=== PATIENT | female | born 1995 | race Caucasian/White ===

== ENCOUNTER 2017-12-26 18:06 | Emergency (ER) | payer MEDICAID ==
[2017-12-26 18:11] VITALS: BP 126/84; PULSE 92; RESP 18; TEMP 98.1
--- NOTE | 2017-12-26 18:50 | XR ---
EXAMINATION TYPE: XR foot complete LT DATE OF EXAM: 12/26/2017 COMPARISON: NONE HISTORY: Foot pain TECHNIQUE: 3 views FINDINGS: Metatarsals are intact. I see no fracture nor dislocation. There are no erosions. Joint spa fernanda are normal. IMPRESSION: Negative left foot exam.
--- NOTE | 2017-12-26 18:59 | ED ---
General Adult HPI - General Chief complaint: Extremity Injury, Lower Stated complaint: Foot Pain Time Seen by Provider: 12/26/17 18:14 Source: patient Mode of arrival: ambulatory Limitations: no limitations - History of Present Illness Initial comments: 22-year-old female patient presents to the emergency department today for evaluation of left foot pain. Patient states that Tuesday she was taking a walk when she developed pain to the dorsal aspect of her foot along the first metatarsal. Patient denies any injury to the foot. Denies any numbness or tingling. Denies any history of similar symptoms. Denies any pain to the plantar surface of the foot. Denies any redness or swelling. Denies any new footwear. Patient denies any headache, neck pain, back pain, chest pain, shortness of breath, dizziness, weakness, abdominal pain, nausea, vomiting, or difficulties with bowel movements or urination. - Related Data Home Medications Medication Instructions Recorded Confirmed Ibuprofen [Motrin Ib] 400 mg PO Q6HR PRN 12/26/17 12/26/17 Previous Rx's Medication Instructions Recorded Ibuprofen [Motrin] 600 mg PO Q8HR PRN #30 tab 12/26/17 Allergies Allergy/AdvReac Type Severity Reaction Status Date / Time codeine AdvReac Vomiting Verified 12/26/17 18:29 Review of Systems ROS Statement: Those systems with pertinent positive or pertinent negative responses have been documented in the HPI. ROS Other: All systems not noted in ROS Statement are negative. Past Medical History Past Medical History: No Reported History History of Any Multi-Drug Resistant Organisms: None Reported Past Surgical History: No Surgical Hx Reported Past Psychological History: No Psychological Hx Reported Smoking Status: Current every day smoker Past Alcohol Use History: Rare Past Drug Use History: None Reported General Exam Limitations: no limitations General appearance: alert, in no apparent distress, other (This is a well- developed, well-nourished adult female patient in no acute distress. Vital signs upon presentation are temperature 98.1F, pulse 92, respirations 18, blood pressure 126/84, pulse ox 99% on room air.) Eye exam: Present: normal appearance, PERRL, EOMI. Absent: scleral icterus, conjunctival injection, periorbital swelling ENT exam: Present: normal exam, normal oropharynx, mucous membranes moist Respiratory exam: Present: normal lung sounds bilaterally. Absent: respiratory distress, wheezes, rales, rhonchi, stridor Cardiovascular Exam: Present: regular rate, normal rhythm, normal heart sounds. Absent: systolic murmur, diastolic murmur, rubs, gallop, clicks Extremities exam: Present: full ROM, normal capillary refill, other (Full passive range of motion of the left great toe without pain. No redness, swelling , or warmth to the MTP joint. Pedal and posttibial pulses are 2+ and equal bilaterally. No joint tenderness.). Absent: normal inspection, tenderness, pedal edema, joint swelling, calf tenderness Neurological exam: Present: alert, oriented X3, CN II-XII intact Psychiatric exam: Present: normal affect, normal mood Skin exam: Present: warm, dry, intact, normal color. Absent: rash Course Vital Signs 12/26/17 18:08 Temperature 98.1 F Pulse Rate 92 Respiratory 18 Rate Blood Pressure 126/84 O2 Sat by Pulse 99 Oximetry Medical Decision Making - Medical Decision Making 22-year-old female patient presented to the emergency department today for evaluation of dorsal foot pain over the first metatarsal. Physical examination is unremarkable. There is no pain with passive range of motion. No pain with active range of motion. Pedal pulses are intact. No evidence of infection. X- rays negative for any acute fractures or dislocations. It is felt patient may have tendinitis. She'll be treated with ibuprofen and rest. She is instructed to follow-up with orthopedics if her symptoms aren't improved over the next week. Return parameters discussed in detail. She verbalizes understanding and agrees with this plan. - Radiology Data Radiology results: report reviewed, image reviewed 3 views of the left foot are obtained. Metatarsals are intact. There is no fracture nor dislocation. There are no erosions. Joint spaces are normal. Impression by Dr. Jamison shows negative left foot exam. Disposition Clinical Impression: Tendinitis of left foot Disposition: HOME SELF-CARE Condition: Good Instructions: Tendinitis (ED) Additional Instructions: Rest foot and use ibuprofen as directed. Follow-up with primary care physician for recheck in 1-2 days. If symptoms persist despite pain control methods follow-up with orthopedics for further evaluation. Return here immediately for any new, worsening, or concerning symptoms. Prescriptions: Ibuprofen [Motrin] 600 mg PO Q8HR PRN #30 tab PRN Reason: Pain Is patient prescribed a controlled substance at d/c from ED?: No Referrals: Desmond Hobbs DO [Primary Care Provider] - 1-2 days Bola Mayorga DO [Doctor of Osteopathic Medicine] - 1-2 days Time of Disposition: 19:19
== END 2017-12-26 19:56 | disposition home or self-care (01) ==
LOC: EC 18:06
DX: M77.52 Other enthesopathy of left foot and ankle (principal); F17.200 Nicotine dependence, unspecified, uncomplicated; Z88.5 Allergy status to narcotic agent
CPT/HCPCS: 99283

== ENCOUNTER → 2018-08-09 | Outpatient (CLI) | payer MEDICAID | LOC: LABWHC1 16:32 | PROVIDERS: ATTEND Obstetrics & Gynecology | DX: N91.2 Amenorrhea, unspecified (principal) | CPT/HCPCS: 36415; 84702 ==

== ENCOUNTER 2019-01-31 21:59 | Emergency (ER) | payer OTHER, MEDICAID ==
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
--- NOTE | 2019-02-01 00:13 | XR ---
EXAM: XR Chest, 2 Views CLINICAL HISTORY: ITS.REASON XR Reason: Pain TECHNIQUE: Frontal and lateral views of the chest. COMPARISON: None FINDINGS: Hardware: None. Lungs/pleura: Normal. No focal consolidation. No pleural effusion or pneumothorax. Heart/mediastinum: Normal. No cardiomegaly. Soft tissues: Bilateral nipple piercings. Bones: No acute fracture. Upper abdomen: Normal. IMPRESSION: No acute disease identified.
[2019-02-01 00:35] VITALS: BP 102/70; PULSE 65; RESP 12; TEMP 98
== END 2019-02-01 00:33 | disposition home or self-care (01) ==
LOC: EC 21:59
DX: S39.012A Strain of muscle, fascia and tendon of lower back, initial encounter (principal); F17.200 Nicotine dependence, unspecified, uncomplicated; Z88.5 Allergy status to narcotic agent; V89.2XXA Person injured in unspecified motor-vehicle accident, traffic, initial encounter; Y92.410 Unspecified street and highway as the place of occurrence of the external cause
CPT/HCPCS: 71046; 99284

== ENCOUNTER 2019-08-17 05:19 | Emergency (ER) | payer MEDICAID, OTHER ==
[2019-08-17] MEDS ORDERED: SODIUM CHLORIDE 0.9% 1,000 ML IV STA (05:42)
[2019-08-17] MEDS ORDERED: ONDANSETRON 4 MG/2 ML VIAL IVP STA (05:42)
--- NOTE | 2019-08-17 05:43 | ED ---
Nausea/Vomiting/Diarrhea HPI - General Chief complaint: Nausea/Vomiting/Diarrhea Stated complaint: Vomiting, diarrhea Time Seen by Provider: 08/17/19 05:42 Source: patient Mode of arrival: ambulatory Limitations: no limitations - History of Present Illness Initial comments: Tabatha is recently healthy 23-year-old female presents ER today for evaluation of nausea vomiting diarrhea. Patient reports that symptoms began approximately 12 hours ago, she reports that she's been vomiting approximately every 30 minutes and is unable to hold down any oral intake. She reports her father was sick last week for similar symptoms. She denies any suspicious food intake but does state she initially thought this might be something she ate. She reports crampy mid abdominal pain. - Related Data Home Medications Medication Instructions Recorded Confirmed No Known Home Medications 01/31/19 01/31/19 Allergies Allergy/AdvReac Type Severity Reaction Status Date / Time codeine AdvReac Vomiting Verified 08/17/19 05:29 Review of Systems ROS Statement: Those systems with pertinent positive or pertinent negative responses have been documented in the HPI. ROS Other: All systems not noted in ROS Statement are negative. Past Medical History Past Medical History: No Reported History History of Any Multi-Drug Resistant Organisms: None Reported Past Surgical History: No Surgical Hx Reported Past Psychological History: No Psychological Hx Reported Smoking Status: Current every day smoker Past Alcohol Use History: Rare Past Drug Use History: None Reported General Exam - General Exam Comments Initial Comments: Physical Exam GENERAL: Patient is well-developed and well-nourished. Patient is nontoxic and well- hydrated and is in no distress. HENT: Normocephalic, Atraumatic. EYES: PERRL, EOMI PULMONARY: Unlabored respirations. No audible rales rhonchi or wheezing was noted. CARDIOVASCULAR: There is a regular rate and rhythm without any murmurs gallops or rubs. ABDOMEN: Soft with normal bowel sounds. Minimal tenderness to palpation the epigastrium No peritoneal signs SKIN: Skin is clear with no lesions or rashes and otherwise unremarkable. : Deferred NEUROLOGIC: Patient is alert and oriented x3. Moving all extremities spontaneously MUSCULOSKELETAL: Normal extremities with adequate strength and full range of motion. No lower extremity swelling or edema. No calf tenderness. PSYCHIATRIC: Normal psychiatric evaluation. Limitations: no limitations Course Vital Signs 08/17/19 08/17/19 08/17/19 05:28 06:33 07:18 Temperature 99.6 F 101 F H 100.7 F H Pulse Rate 129 H 122 H 120 H Respiratory 20 16 18 Rate Blood Pressure 106/70 122/77 115/73 O2 Sat by Pulse 97 100 100 Oximetry 08/17/19 08:34 Temperature 100.5 F H Pulse Rate 104 H Respiratory 18 Rate Blood Pressure 114/63 O2 Sat by Pulse 100 Oximetry Medical Decision Making - Medical Decision Making Patient was seen and evaluated history and physical exam concerning for dehydration patient with nausea vomiting diarrhea for 12 hours noted be normotensive but tachycardic afebrile upon arrival Labs and IV fluids were ordered Zofran ordered for antiemetic Patient was reevaluated after antiemetics and 1 L of fluids, feeling much better tolerating by mouth intake however now has a fever. Antipyretics were ordered as well as an additional 1 L of fluids. Labs resulted with mild leukocytosis likely reactive, mild transaminitis again likely reactive due to vomiting, She was reevaluated after additional antipyretics and IV fluids, heart rate is improving, fever is improving she is feeling better she's tolerated a glass of ice water. Abdomen is soft with only minimal epigastric tenderness to deep palpation likely secondary to multiple episodes of vomiting. No peritoneal signs. At this time patient is comfortable with plan for discharge home. Importance of supportive care, oral fluid intake, hydration were discussed. Return parameters including any worsening abdominal pain, intractable nausea and vomiting, signs of dehydration or any new or concerning symptoms were discussed. Patient was discharged home in stable condition. - Lab Data Result diagrams: 08/17/19 06:00 08/17/19 06:00 Lab Results 08/17/19 08/17/19 08/17/19 Range/Units 06:00 06:00 06:00 WBC 12.0 H (3.8-10.6) k/uL RBC 5.20 (3.80-5.40) m/uL Hgb 15.2 (11.4-16.0) gm/dL Hct 47.6 H (34.0-46.0) % MCV 91.4 (80.0-100.0) fL MCH 29.2 (25.0-35.0) pg MCHC 31.9 (31.0-37.0) g/dL RDW 13.0 (11.5-15.5) % Plt Count 464 H (150-450) k/uL Neutrophils % 93 % Lymphocytes % 2 % Monocytes % 4 % Eosinophils % 1 % Basophils % 0 % Neutrophils # 11.1 H (1.3-7.7) k/uL Lymphocytes # 0.2 L (1.0-4.8) k/uL Monocytes # 0.4 (0-1.0) k/uL Eosinophils # 0.1 (0-0.7) k/uL Basophils # 0.0 (0-0.2) k/uL Sodium 138 (137-145) mmol/L Potassium 4.8 (3.5-5.1) mmol/L Chloride 107 (98-107) mmol/L Carbon Dioxide 21 L (22-30) mmol/L Anion Gap 10 mmol/L BUN 18 H (7-17) mg/dL Creatinine 0.70 (0.52-1.04) mg/dL Est GFR (CKD-EPI)AfAm >90 (>60 ml/min/1.73 sqM) Est GFR (CKD-EPI)NonAf >90 (>60 ml/min/1.73 sqM) Glucose 179 H (74-99) mg/dL Calcium 9.1 (8.4-10.2) mg/dL Total Bilirubin 1.6 H (0.2-1.3) mg/dL AST 61 H (14-36) U/L ALT 49 H (4-34) U/L Alkaline Phosphatase 103 (38-126) U/L Total Protein 7.5 (6.3-8.2) g/dL Albumin 4.4 (3.5-5.0) g/dL Urine Color Yellow Urine Appearance Cloudy H (Clear) Urine pH 6.0 (5.0-8.0) Ur Specific [place] 1.035 (1.001-1.035) Urine Protein 1+ H (Negative) Urine Glucose (UA) Negative (Negative) Urine Ketones 1+ H (Negative) Urine Blood Trace H (Negative) Urine Nitrite Negative (Negative) Urine Bilirubin 1+ H (Negative) Urine Urobilinogen 3.0 (<2.0) mg/dL Ur Leukocyte Esterase Small H (Negative) Urine RBC 3 (0-5) /hpf Urine WBC 4 (0-5) /hpf Ur Squamous Epith Cells 6 H (0-4) /hpf Urine Bacteria Rare H (None) /hpf Urine Mucus Moderate H (None) /hpf Influenza Type A RNA (Not Detectd) Influenza Type B (PCR) (Not Detectd) 08/17/19 Range/Units 06:40 WBC (3.8-10.6) k/uL RBC (3.80-5.40) m/uL Hgb (11.4-16.0) gm/dL Hct (34.0-46.0) % MCV (80.0-100.0) fL MCH (25.0-35.0) pg MCHC (31.0-37.0) g/dL RDW (11.5-15.5) % Plt Count (150-450) k/uL Neutrophils % % Lymphocytes % % Monocytes % % Eosinophils % % Basophils % % Neutrophils # (1.3-7.7) k/uL Lymphocytes # (1.0-4.8) k/uL Monocytes # (0-1.0) k/uL Eosinophils # (0-0.7) k/uL Basophils # (0-0.2) k/uL Sodium (137-145) mmol/L Potassium (3.5-5.1) mmol/L Chloride (98-107) mmol/L Carbon Dioxide (22-30) mmol/L Anion Gap mmol/L BUN (7-17) mg/dL Creatinine (0.52-1.04) mg/dL Est GFR (CKD-EPI)AfAm (>60 ml/min/1.73 sqM) Est GFR (CKD-EPI)NonAf (>60 ml/min/1.73 sqM) Glucose (74-99) mg/dL Calcium (8.4-10.2) mg/dL Total Bilirubin (0.2-1.3) mg/dL AST (14-36) U/L ALT (4-34) U/L Alkaline Phosphatase (38-126) U/L Total Protein (6.3-8.2) g/dL Albumin (3.5-5.0) g/dL Urine Color Urine Appearance (Clear) Urine pH (5.0-8.0) Ur Specific [place] (1.001-1.035) Urine Protein (Negative) Urine Glucose (UA) (Negative) Urine Ketones (Negative) Urine Blood (Negative) Urine Nitrite (Negative) Urine Bilirubin (Negative) Urine Urobilinogen (<2.0) mg/dL Ur Leukocyte Esterase (Negative) Urine RBC (0-5) /hpf Urine WBC (0-5) /hpf Ur Squamous Epith Cells (0-4) /hpf Urine Bacteria (None) /hpf Urine Mucus (None) /hpf Influenza Type A RNA Not Detected (Not Detectd) Influenza Type B (PCR) Not Detected (Not Detectd) Disposition Clinical Impression: Flu-like symptoms Disposition: HOME SELF-CARE Condition: Stable Additional Instructions: Make sure he drink plenty of fluids Alternate Tylenol and Motrin for treatment of fever Return to the ER if you have any worsening abdominal pain, nausea vomiting doesn't resolve with medications inability to tolerate oral intake signs of dehydration or any new or concerning symptoms Is patient prescribed a controlled substance at d/c from ED?: No Referrals: Desmond Hobbs DO [Primary Care Provider] - 1-2 days
[2019-08-17 06:12] LABS: Appearance,Urine Cloudy (Clear); Bacteria,Urine Rare /hpf; Basophils % (A) 0 %; Bilirubin,Urine 1+ (Negative); Blood,Urine Trace (Negative); Color,Urine Yellow; Eosinophils # (A) 0.1 k/uL (0-0.7); Eosinophils % (A) 1 %; Glucose,Urine (UA) Negative (Negative); HCT 47.6 % (34.0-46.0); HGB 15.2 gm/dL (11.4-16.0); Ketones,Urine 1+ (Negative); Leukocyte Esterase,Urine Small (Negative); Lymphocytes # (A) 0.2 k/uL (1.0-4.8); Lymphocytes % (A) 2 %; MCH 29.2 pg (25.0-35.0); MCHC 31.9 g/dL (31.0-37.0); MCV 91.4 fL (80.0-100.0); Mean Platelet Volume 6.7; Monocytes # (A) 0.4 k/uL (0-1.0); Monocytes % (A) 4 %; Mucus,Urine Moderate /hpf; Neutrophils # (A) 11.1 k/uL (1.3-7.7); Neutrophils % (A) 93 %; Nitrite,Urine Negative (Negative); Platelet Count 464 k/uL (150-450); Protein,Urine 1+ (Negative); RBC,Urine 3 /hpf (0-5); Specific Gravity,Urine 1.035 (1.001-1.035); Squamous Epithelial Cell,Urine 6 /hpf (0-4); WBC,Urine 4 /hpf (0-5)
[2019-08-17 06:19] LABS: ALT 49 U/L (4-34); AST 61 U/L (14-36); African American GFR (CKD) >90 (>60 ml/min/1.73 sqM); Albumin 4.4 g/dL (3.5-5.0); Alkaline Phosphatase 103 U/L (38-126); Anion Gap 10 mmol/L; Blood Urea Nitrogen 18 mg/dL (7-17); Calcium 9.1 mg/dL (8.4-10.2); Carbon Dioxide 21 mmol/L (22-30); Chloride 107 mmol/L (98-107); Glucose 179 mg/dL (74-99); Non-African American GFR(CKD) >90 (>60 ml/min/1.73 sqM); Potassium 4.8 mmol/L (3.5-5.1); Sodium 138 mmol/L (137-145); Total Bilirubin 1.6 mg/dL (0.2-1.3); Total Protein 7.5 g/dL (6.3-8.2)
[2019-08-17] MEDS ORDERED: SODIUM CHLORIDE 0.9% 1,000 ML IV ONE (06:35)
[2019-08-17] MEDS ORDERED: IBUPROFEN 400 MG TAB PO STA (06:35)
[2019-08-17 07:19] VITALS: RESP 18
[2019-08-17] MEDS ORDERED: ONDANSETRON 4 MG ODT STARTER PACK 2 TAB BTL PO STA (07:39)
[2019-08-17] MEDS ORDERED: ACETAMINOPHEN TAB 325 MG TAB PO STA (07:39)
[2019-08-17 08:35] VITALS: BP 114/63; PULSE 104; TEMP 100.5
== END 2019-08-17 08:55 | disposition home or self-care (01) ==
LOC: EC 05:19
DX: R11.2 Nausea with vomiting, unspecified (principal); R19.7 Diarrhea, unspecified; R10.9 Unspecified abdominal pain; R00.0 Tachycardia, unspecified; F17.200 Nicotine dependence, unspecified, uncomplicated; Z88.5 Allergy status to narcotic agent
CPT/HCPCS: 36415; 80053; 85025; 81001; 87502; 99284; 96374; 96361; J2405; S0119

== ENCOUNTER → 2021-01-14 | Outpatient (CLI) | payer MEDICAID ==
--- NOTE | 2021-01-14 13:47 | CT ---
EXAMINATION TYPE: CT sinus wo con DATE OF EXAM: 01/14/2021 COMPARISON: None HISTORY: Chronic sinusitis and right side nasal swelling. CT DLP: 603 mGycm CONTRAST: None The paranasal sinuses are examined in the axial plane at 2 mm thick sections. Reconstructed images i n the coronal plane were obtained. Old fracture repairs with plate and screws are present The maxillary sinuses are clear. The ethmoid air cells are clear. The sphenoid sinuses are clear. The frontal sinuses are clear. The septum is evaluated. There is septal deviation to the right. The ostiomeatal units are patent. IMPRESSIONS: 1. Postsurgical changes with plate and screw fixation. 2. No suspicious mucosal thickening or air-fluid levels to suggest chronic or acute sinusitis. 3. Right septal deviation.
== END | disposition home or self-care (01) ==
LOC: RADCTMAIN 11:10
PROVIDERS: ATTEND Otolaryngology
DX: J34.2 Deviated nasal septum (principal)
CPT/HCPCS: 70486

== ENCOUNTER → 2021-06-29 | Outpatient (CLI) | payer OTHER ==
--- NOTE | 2021-06-30 09:24 | US ---
EXAMINATION TYPE: US thyroid st tissue head/neck DATE OF EXAM: 06/29/2021 COMPARISON: NONE CLINICAL HISTORY: E04.9 NONTOXIC GOITER. Enlargement of gland on physical exam by physician with norm al labs GLAND SIZE: Right Lobe: 5.4 x 1.3 x 2.0 cm Overall Parenchyma: homogenous Left Lobe: 5.1 x 1.3 x 1.4 cm Overall Parenchyma: homogeneous Isthmus Thickness: 0.3 cm NODULES RIGHT: # of nodules measured on right: 1 1. 0.8 X 0.8 x 0.5 cm, mid mid, solid or almost completely solid, hypoechoic nodule, which is talle r than wide, with ill-defined margins, without echogenic foci. LEFT: # of nodules measured on left: 0 ISTHMUS: # of nodules measured in the isthmus: 0 Bilateral neck scanned, no evidence of lymphadenopathy. IMPRESSION: Moderately suspicious, follow-up ultrasound is recommended in one year, 2 years, 3 years and 5 years, FNA if greater than 1.5 cm. 2017 ACR TI-RADS LEVEL: TR 4 *Highest TI-RADS level nodule reported
== END | disposition home or self-care (01) ==
LOC: RADUSWWP 16:23
PROVIDERS: ATTEND Family Medicine
DX: E04.1 Nontoxic single thyroid nodule (principal)
CPT/HCPCS: 76536

== ENCOUNTER → 2021-10-16 | Outpatient (CLI) | payer OTHER ==
[2021-10-16 16:45] LABS: HCG,Qualitative Serum Detected
== END | disposition home or self-care (01) ==
LOC: LABWHC1 16:07
PROVIDERS: ATTEND Family Medicine
DX: Z32.01 Encounter for pregnancy test, result positive (principal); Z3A.00 Weeks of gestation of pregnancy not specified
CPT/HCPCS: 36415; 84702; 84703

== ENCOUNTER 2022-05-10 10:06 | Outpatient (CLI) | payer MEDICAID, OTHER ==
[2022-05-10 10:30] LABS: Glucose,Whole Blood 103 mg/dL (70-110)
[2022-05-10 11:25] LABS: Appearance,Urine Clear (Clear); Bacteria,Urine Rare /hpf; Bilirubin,Urine Negative (Negative); Blood,Urine Moderate (Negative); Color,Urine Light Yellow; Glucose,Urine (UA) Negative (Negative); Ketones,Urine Negative (Negative); Leukocyte Esterase,Urine Trace (Negative); Mucus,Urine Rare /hpf; Nitrite,Urine Negative (Negative); PH, Urine 6.5 (5.0-8.0); Protein,Urine Negative (Negative); RBC,Urine <1 /hpf (0-5); Specific Gravity,Urine 1.008 (1.001-1.035); Squamous Epithelial Cell,Urine 1 /hpf (0-4); Urobilinogen,Urine <2.0 mg/dL (<2.0); WBC,Urine 1 /hpf (0-5)
[2022-05-10] MEDS ORDERED: LACTATED RINGERS 1,000 ML IV SCH (11:45)
[2022-05-10] MEDS ORDERED: ACETAMINOPHEN IV (For NPO) 1,000 MG in EMPTY BAG 1 BAG IVPB STA (12:16)
[2022-05-10 13:26] VITALS: BP 134/84; PULSE 82; RESP 18; TEMP 97.7
--- NOTE | 2022-06-01 14:26 | P.MSEPDOC ---
Presenting Problems - Arrival Data Date of Arrival on Unit: 05/10/22 Time of Arrival on Unit: 10:06 Mode of Transport: Ambulatory - Complaint OB-Reason for Admission/Chief Complaint: Pain Comment: Pt presents to triage for pelvic pressure and cramping Medical History - Information : 1 Para: 0 Term: 0 : 0 Abortions: Spontaneous or Elective: 0 Number of Living Children: 0 - Gestational Age Gestational Age by URMILA (wks/days): 36 Weeks and 0 Days Review of Systems - Review of Systems Constitutional: No problems Breast: No problems ENT: No problems Cardiovascular: No problems Respiratory: No problems Gastrointestinal: No problems Genitourinary: No problems Musculoskeletal: No problems Neurological: No problems Skin: No problems Vital Signs - Temperature Temperature: 97.7 F Temperature Source: Temporal Artery Scan - Pulse Right Brachial Pulse Rate: 82 Pulse Assessment Method: Automatic Cuff - Respirations Respiratory Rate: 18 Oxygen Delivery Method: Room Air O2 Sat by Pulse Oximetry: 98 - Blood Pressure Right Arm Blood Pressure: 134/84 Blood Pressure Mean: 100 Blood Pressure Source: Automatic Cuff Medical Screen Scoring - Cervical Exam Dilation (cm): 0 - Uterine Contractions Intensity: Mild Resting: Soft to palpation - Assessment - Baby A Baseline FHR: 130 Heart Rate - NICHD Category: Category I (Normal) NST: Reactive Physician Notification - Physician Notified Physician Notified Date: 05/10/22 Physician Notified Time: 11:13 Physician: Mary Olsen New Order Received: Yes - Notification Comment Comment: pt treated with IVF abx, and one dose of offirmive, UA was sent and culture being run, cervix closed, pt discharged home and will follow up in office on tuesday this week in the office Maternal Triage Index - Non-Urgent/Priority 4 Non-Urgent Priority 4: Yes Criteria Met for Priority 4: Pt presents to triage for pelvic pressure and cramping Disposition - Disposition OB Disposition: Triage, Discharge to home, Written follow up instructions reviewed Discharge Date: 05/10/22 Discharge Time: 13:10 I agree with the RN Medical Screening Exam: Yes Case reviewed; plan agreed upon as documented in EMR&OBIX.: Yes Diagnosis: FALSE LABOR AT OR AFTER 37 COMPLETED WEEKS OF GESTATION
== END 2022-05-10 13:10 | disposition home or self-care (01) ==
LOC: FBPOP 10:06
PROVIDERS: ATTEND Obstetrics & Gynecology Obstetrics
DX: O26.893 Other specified pregnancy related conditions, third trimester (principal); Z3A.36 36 weeks gestation of pregnancy; R74.8 Abnormal levels of other serum enzymes; Z88.5 Allergy status to narcotic agent; F17.200 Nicotine dependence, unspecified, uncomplicated
CPT/HCPCS: 59025; 99214; 96361; 96365; 96367; 81001; 87086; J0690; J0131; 96366

== ENCOUNTER 2022-05-31 07:00 | Inpatient (IN) | payer OTHER ==
[2022-05-31] MEDS ORDERED: LIDOCAINE 0.5% (PF) 5 MG/ML (50 ML SDV) SQ PRN (07:22)
[2022-05-31] MEDS ORDERED: TERBUTALINE 1 MG/ML VIAL SQ PRN (07:22)
[2022-05-31] MEDS ORDERED: OXYTOCIN 30 UNITS/500 ML NS 30 UNIT in SALINE 1 500ML.BAG IV SCH (07:30)
[2022-05-31] MEDS: LACTATED RINGERS 1,000 ML IV SCH ×3 (08:03→18:13)
[2022-05-31 08:18] LABS: Basophils % (A) 0 %; Eosinophils # (A) 0.1 k/uL (0-0.7); Eosinophils % (A) 1 %; HCT 34.8 % (34.0-46.0); HGB 11.8 gm/dL (11.4-16.0); Lymphocytes # (A) 1.7 k/uL (1.0-4.8); Lymphocytes % (A) 19 %; MCH 28.6 pg (25.0-35.0); MCHC 33.8 g/dL (31.0-37.0); MCV 84.7 fL (80.0-100.0); Mean Platelet Volume 10.6; Monocytes # (A) 0.6 k/uL (0-1.0); Monocytes % (A) 6 %; Neutrophils # (A) 6.2 k/uL (1.3-7.7); Neutrophils % (A) 70 %; Platelet Count 235 k/uL (150-450); RBC 4.11 m/uL (3.80-5.40); WBC 8.8 k/uL (3.8-10.6)
[2022-05-31 08:20] LABS: Glucose,Whole Blood 88 mg/dL (70-110)
--- NOTE | 2022-05-31 08:51 | P.HPOB ---
History of Present Illness H&P Date: 05/31/22 Chief Complaint: IUP @ 39 0/7 weeks. SROM This is a 26-year-old 1 para 0 at 39-0/7 weeks, estimated due date of 06/07. Patient presents with complaints of spontaneous rupture of membranes around 6 AM. Rupture of membranes was confirmed in OB triage. Patient has been receiving routine care with myself which has been complicated by diagnosis of gestational diabetes. Blood sugars have been well controlled. She does take metformin daily. She notes good movement and occasional contractions this morning. On bloodwork this patient has a blood type of A+, rubella status immune, hepatitis B surface antigen negative, RPR is nonreactive, HIV is negative, group beta strep culture negative. Review of Systems Constitutional: Denies chills, Denies fatigue, Denies fever Ears, nose, mouth and throat: Denies headache Cardiovascular: Reports leg edema Respiratory: Denies dyspnea Gastrointestinal: Denies nausea, Denies vomiting Genitourinary: Reports Past Medical History Past Medical History: No Reported History History of Any Multi-Drug Resistant Organisms: None Reported Past Surgical History: No Surgical Hx Reported Smoking Status: Never smoker Medications and Allergies Home Medications Medication Instructions Recorded Confirmed Type Vit No.179/Iron/Folic 1 tab PO DAILY 05/10/22 05/31/22 History [ Tablet] metFORMIN HCL ER [Glucophage XR] 750 mg PO DAILY 05/10/22 05/31/22 History Allergies Allergy/AdvReac Type Severity Reaction Status Date / Time codeine AdvReac Vomiting Verified 09/04/20 10:17 Exam Osteopathic Statement: *. No significant issues noted on an osteopathic structural exam other than those noted in the History and Physical/Consult. Intake and Output 05/30/22 05/31/22 05/31/22 22:59 06:59 14:59 Other: Weight 68.039 kg Targeted physical exam is performed in this date and buccaro a well-nourished well-developed female in no acute distress, breathing is noted to be nonlabored, heart has regular rate and rhythm, abdomen is rapid and appropriate for gestational age, on cervical exam she is 1/80/-2 gross rupture of membranes appreciated. heart tones are noted to be category 1 and she is adelia every 2-4 minutes. Results Result Diagrams: 05/31/22 08:00 Abnormal Lab Results - Last 24 Hours (Table) 05/31/22 Range/Units 08:00 RDW 16.0 H (11.5-15.5) % Assessment and Plan (1) 39 weeks gestation of Current Visit: Yes Status: Acute Code(s): Z3A.39 - 39 WEEKS GESTATION OF SNOMED Code(s): 15518709 (2) SROM (spontaneous rupture of membranes) Current Visit: Yes Status: Acute Code(s): [id number] - SNOMED Code(s): 078783418 Plan: 26-year-old 1 para 0 at 39-0/7 weeks presents with spontaneous rupture of membranes. Patient is admitted to labor and delivery. Options for analgesia are discussed including Stadol/nitrous/epidural. Patient will consider. Continue close monitoring and anticipate spontaneous vaginal delivery later today.
[2022-05-31] MEDS ORDERED: BUTORPHANOL 1 MG/ML 1 ML VIAL IV PRN (09:33)
[2022-05-31 09:43] LABS: ALT 15 U/L (4-34); AST 26 U/L (14-36); African American GFR (CKD) >90 (>60 ml/min/1.73 sqM); Blood Urea Nitrogen 15 mg/dL (7-17); LDH 541 U/L (313-618); Non-African American GFR(CKD) >90 (>60 ml/min/1.73 sqM); Uric Acid 8.5 mg/dL (3.7-7.4)
[2022-05-31] MEDS ORDERED: ROPIVACAINE 5 MG/ML 20 ML AMPULE ONE (12:57)
[2022-05-31] MEDS ORDERED: SODIUM CHLORIDE 0.9% 100 ML BAG ONE (12:57)
[2022-05-31] MEDS ORDERED: fentaNYL (PF) 50 MCG/ML 5 ML AMP ONE (12:57)
[2022-05-31] MEDS ORDERED: AMPICILLIN 2,000 MG in SODIUM CHLORIDE 0.9% 100 ML IVPB STA (17:55)
[2022-05-31] MEDS ORDERED: ACETAMINOPHEN TAB 500 MG TAB PO STA (17:56)
[2022-05-31] MEDS: AMPICILLIN 1,000 MG in SODIUM CHLORIDE 0.9% 50 ML IVPB SCH (22:06)
[2022-05-31] MEDS ORDERED: CITRIC ACID-SODIUM CITRATE 15 ML CUP PO ONE (23:27)
[2022-05-31] MEDS ORDERED: HYDROmorphone (PF) 1 MG/ML ONE (23:53)
[2022-05-31] MEDS ORDERED: MORPHINE SULFATE (PF) 0.3 MG/0.3 ML SYR ONE (23:53)
[2022-05-31] MEDS ORDERED: KETOROLAC 15 MG/ML 1 ML VIAL ONE (23:53)
[2022-05-31] MEDS ORDERED: ONDANSETRON 4 MG/2 ML VIAL ONE (23:53)
[2022-05-31] MEDS ORDERED: OXYTOCIN 30 UNITS/500 ML NS BAG IV ONE (23:53)
[2022-06-01] MEDS ORDERED: ZOLPIDEM 5 MG TAB PO PRN (00:36)
[2022-06-01] MEDS ORDERED: diphenhydrAMINE 50 MG CAP PO PRN (00:36)
[2022-06-01] MEDS ORDERED: ONDANSETRON 4 MG/2 ML VIAL IVP PRN (00:36)
[2022-06-01] MEDS ORDERED: diphenhydrAMINE 25 MG CAP PO PRN (00:36)
[2022-06-01] MEDS ORDERED: LANOLIN CREAM 5 GM TUBE TOPICAL PRN (00:36)
[2022-06-01] MEDS ORDERED: SIMETHICONE 80 MG CHEWABLE PO PRN (00:36)
[2022-06-01] MEDS ORDERED: NALOXONE 0.4 MG/ML 1 ML VIAL IV PRN (00:36)
[2022-06-01] MEDS ORDERED: METOCLOPRAMIDE 5 MG/ML 2 ML VIAL IVP PRN (00:36)
[2022-06-01] MEDS ORDERED: diphenhydrAMINE 50 MG/ML 1 ML VIAL IVP PRN ×2 (00:36)
--- NOTE | 2022-06-01 00:45 | P.OP ---
Date of Procedure: 06/01/22 Preoperative Diagnosis: #1. 39-0/7 weeks, spontaneous rupture of members, labor #2. Arrest of descent and dilation #3. Suspected malposition Postoperative Diagnosis: same plus #4. left occiput posterior Procedure(s) Performed: #1. Primary low-transverse section Anesthesia: epidural Surgeon: Armando Jovel Tower Cleaner #1: Laverne Stewart Estimated Blood Loss (ml): 560 IV fluids (ml): 800 Urine output (ml): 100 Pathology: none sent Condition: stable Disposition: floor Operative Findings: preoperatively, the patient had reached approximate 6-7 cm of dilation with the head not well applied to the cervix. Minimal change was occurring over the course of several hours and there was beginning to be significant caput as well as cervical swelling. Given the suspicion of occiput transverse or posterior and the above findings, decision was made to proceed to the operating room for delivery. She was taken the operating room where she was delivered of a viable 7 lbs. 6 oz. baby girl with Apgars of 8 at 1 minute and 9 at 5 minutes in the left occiput posterior position. The placenta was delivered manually, intact, and grossly normal with a grossly normal three-vessel cord. The uterus, tubes, and ovaries were entirely normal to inspection. Description of Procedure: the patient was prepped and draped in usual fashion after epidural anesthesia was bolused by the anesthesiologist. A Pfannenstiel incision was made and extended into the abdominal cavity without difficulty. The bladder peritoneum was significantly distal to the intended site of incision was left intact. A 2 cm incision was made in the transverse plane of the lower uterine segment to enter the uterus at which time clear fluid was again noted. Incision was extend ed bluntly in both directions. head was encountered deep in the pelvis in the left occiput posterior position and was elevated up and through the incision where the nose and mouth were thoroughly suctioned. Remainder of the infant was delivered onto the field where the cord was doubly clamped, cut, and the passed for resuscitative measures with weight and Apgars as noted above. A s egment of cord was doubly clamped, cut, and set aside should cord gases become necessary. The placenta was delivered manually, intact, and grossly normal as noted above. The uterus was exteriorized and the interior cavity uterus swept of any remaining placental or membranous fragments. The margins of the uterine incision were grasped with Terrazas clamps and the incision closed in 2 layers. The first layer was a running locking stitch of 0 chromic catgut from margin to margin followed by a running imbricating stitch of 0 chromic catgut from margin to margin. Hemostasis appeared to be excellent. The posterior cul-de-sac was suctioned with a guard followed by laparotomy sponge. The uterus was replaced within the abdominal cavity and the gutters swept of any remaining blood, fluid, or clot. The incision was reexamined and found to be hemostatic. The parietal peritoneum was loosely reapproximated in the layer of muscles examined and found to be hemostatic. The fascia was closed with a single running stitch of 0 Vicryl from margin to margin. The subcutaneous tissues were irrigated, made hemostatic with the Bovie, and reapproximated with a running stitch of 30 plain catgut. The skin was reapproximated with a running subcuticular stitch of 4-0 Vicryl from margin to margin followed by half-inch Steri-Strips placed with Mastisol. Quantitative blood loss for the case was 560 mL. There were no complications. All sponge, instrument, and needle counts were correct. The patient tolerated the procedure well and proceeded to the recovery room in stable condition. Both mother and infant are resting comfortably in recovery.
[2022-06-01] MEDS: AMPICILLIN 1,000 MG in SODIUM CHLORIDE 0.9% 50 ML IVPB SCH ×3 (02:27→11:48)
[2022-06-01] MEDS: LACTATED RINGERS 1,000 ML IV SCH ×4 (05:43→12:24)
[2022-06-01] MEDS: ACETAMINOPHEN TAB 500 MG TAB PO SCH ×4 (05:45→21:41)
[2022-06-01] MEDS: KETOROLAC 15 MG/ML 1 ML VIAL IVP PRN ×2 (08:36→16:54)
--- NOTE | 2022-06-01 08:46 | P.PNOBGPC ---
Subjective - Subjective Principal diagnosis: Postop day 0, primary Interval history: Patient is doing well postoperatively. She is noting some nausea this morning. She is tolerating clear liquids. She states her pain is controlled. Urine output is noted to be slightly low. Montejo catheter remains. Patient reports: Reports appetite normal, Reports pain well controlled, Reports nauseated [place]: doing well Objective - Vital Signs Latest vital signs: Vital Signs Temp Pulse Resp BP Pulse Ox 06/01/22 06:02 98.5 F 94 16 143/94 98 06/01/22 02:39 102 H 15 117/62 98 06/01/22 02:09 98.3 F 102 H 15 122/83 98 06/01/22 01:39 118 H 16 129/75 97 06/01/22 01:24 98.3 F 122 H 16 140/73 98 06/01/22 01:09 98.6 F 116 H 134/79 97 06/01/22 00:54 105 H 17 135/77 98 06/01/22 00:39 97.3 F L 108 H 17 135/76 99 Intake and Output 05/31/22 06/01/22 06/01/22 22:59 06:59 14:59 Output Total 50 1480 Balance -50 -1480 Output: Urine 50 300 Estimated Blood Loss 620 Output, Quantitative 560 Blood Loss Other: Voiding Method Indwelling Catheter # Voids 1 - Exam Extremities: Present: normal, edema Abdomen: Present: normal appearance, soft Incision: Present: normal, dry, intact Uterus: Present: normal, firm - Labs Labs: Abnormal Lab Results - Last 24 Hours (Table) 05/31/22 05/31/22 Range/Units 08:00 09:10 Hemoglobin A1c 6.1 H (0.0-6.0) % Uric Acid 8.5 H (3.7-7.4) mg/dL Assessment and Plan (1) 39 weeks gestation of Current Visit: Yes Status: Acute Code(s): Z3A.39 - 39 WEEKS GESTATION OF SNOMED Code(s): 22164515 (2) SROM (spontaneous rupture of membranes) Current Visit: Yes Status: Acute Code(s): VDF5272 - SNOMED Code(s): 646559482 (3) Arrest of descent, delivered, current hospitalization Current Visit: Yes Status: Acute Code(s): O62.1 - SECONDARY UTERINE INERTIA SNOMED Code(s): 62375027 (4) Arrest of dilation, delivered, current hospitalization Current Visit: Yes Status: Acute Code(s): O62.1 - SECONDARY UTERINE INERTIA SNOMED Code(s): 63615752 (5) malposition, delivered, current hospitalization Current Visit: Yes Status: Acute Code(s): O32.9XX0 - MATERNAL CARE FOR MALPRESENTATION OF FETUS, UNSP, UNSP SNOMED Code(s): 910713061 (6) Gestational diabetes Current Visit: Yes Status: Acute Code(s): O24.419 - GESTATIONAL DIABETES MELLITUS IN , UNSP CONTROL SNOMED Code(s): 54489101 (7) S/P section Current Visit: Yes Status: Acute Code(s): Z98.891 - HISTORY OF UTERINE SCAR FROM PREVIOUS SURGERY SNOMED Code(s): 154409588 Plan: 26-year-old G1 now P1 status post primary . Patient is doing well overall. We will initiate 500 mL bolus of LR given urine output. Will increase ambulation later today. Plan to remove dressing around 1700. Continue routine postoperative care.
[2022-06-01] MEDS: IBUPROFEN 600 MG TAB PO SCH ×3 (09:19→19:20)
[2022-06-01] MEDS: SENNOSIDES-DOCUSATE SODIUM 1 EACH TAB PO SCH (09:27)
[2022-06-01 12:44] LABS: Anisocytosis Slight; Basophils % (A) 0 %; Eosinophils % (A) 0 %; HCT 20.4 % (34.0-46.0); Hypochromasia Slight; Lymphocytes # (A) 1.4 k/uL (1.0-4.8); Lymphocytes % (A) 9 %; MCH 28.6 pg (25.0-35.0); MCHC 32.8 g/dL (31.0-37.0); MCV 87.1 fL (80.0-100.0); Mean Platelet Volume 9.8; Monocytes # (A) 0.8 k/uL (0-1.0); Monocytes % (A) 5 %; Neutrophils # (A) 12.9 k/uL (1.3-7.7); Neutrophils % (A) 84 %; Platelet Count 169 k/uL (150-450); RBC 2.34 m/uL (3.80-5.40); RDW 16.2 % (11.5-15.5); WBC 15.4 k/uL (3.8-10.6)
[2022-06-01 12:56] LABS: HGB 6.7 gm/dL (11.4-16.0)
[2022-06-01 12:57] LABS: African American GFR (CKD) >90 (>60 ml/min/1.73 sqM); Blood Urea Nitrogen 13 mg/dL (7-17); Non-African American GFR(CKD) >90 (>60 ml/min/1.73 sqM)
--- NOTE | 2022-06-01 14:40 | P.MSEPDOC ---
Presenting Problems - Arrival Data Date of Arrival on Unit: 05/31/22 Time of Arrival on Unit: 07:00 Mode of Transport: Ambulatory - Complaint OB-Reason for Admission/Chief Complaint: Rule Out SROM Medical History - Information : 1 Para: 0 Term: 0 : 0 Abortions: Spontaneous or Elective: 0 Number of Living Children: 0 - Gestational Age Gestational Age by URMILA (wks/days): 39 Weeks and 1 Days - History Complications: GDM Review of Systems - Review of Systems Constitutional: No problems Breast: No problems ENT: No problems Cardiovascular: No problems Respiratory: No problems Gastrointestinal: No problems Genitourinary: No problems Musculoskeletal: No problems Neurological: No problems Skin: No problems Vital Signs - Temperature Temperature: 98.4 F Temperature Source: Oral - Pulse Right Sitting Brachial Pulse Rate: 98 Pulse Assessment Method: Automatic Cuff - Respirations Respiratory Rate: 16 - Blood Pressure Right Arm Sitting Blood Pressure: 136/90 Blood Pressure Mean: 105 Blood Pressure Source: Automatic Cuff Medical Screen Scoring - Cervical Exam Dilation (cm): 1 Effacement (%): 80 Station: -2 Membranes: Ruptured - Uterine Contractions Frequency From (mins): 2 Frequency To (mins): 4 Duration From (seconds): 60 Duration To (seconds): 90 Intensity: Mild Resting: Soft to palpation - Assessment - Baby A Baseline FHR: 130 Heart Rate - NICHD Category: Category I (Normal) NST: Reactive Physician Notification - Physician Notified New Order Received: Yes (Order 1L PRBC) - Notification Comment Comment: admit for labor Maternal Triage Index - Maternal Triage Index Presenting for scheduled procedure w/no complaint: No - Stat/Priority 1 Stat Priority 1: No - Urgent/Priority 2 Urgent Priority 2: No - Prompt/Priority 3 Prompt Priority 3: No - Non-Urgent/Priority 4 Non-Urgent Priority 4: Yes Criteria Met for Priority 4: SROM 0600, clear fluid Disposition - Disposition OB Disposition: Admit I agree with the RN Medical Screening Exam: Yes Case reviewed; plan agreed upon as documented in EMR&OBIX.: Yes Diagnosis: ENCOUNTER FOR FULL-TERM UNCOMPLICATED DELIVERY
[2022-06-02] MEDS: SENNOSIDES-DOCUSATE SODIUM 1 EACH TAB PO SCH ×3 (01:41→20:55)
[2022-06-02] MEDS: IBUPROFEN 600 MG TAB PO SCH ×5 (01:41→20:55)
[2022-06-02] MEDS: ACETAMINOPHEN TAB 500 MG TAB PO SCH ×4 (04:31→23:56)
[2022-06-02 05:45] LABS: Basophils % (A) 0 %; Eosinophils % (A) 0 %; HCT 25.3 % (34.0-46.0); Hypochromasia Slight; Lymphocytes # (A) 1.4 k/uL (1.0-4.8); Lymphocytes % (A) 11 %; MCH 29.2 pg (25.0-35.0); MCHC 33.3 g/dL (31.0-37.0); MCV 87.5 fL (80.0-100.0); Mean Platelet Volume 8.8; Monocytes # (A) 0.8 k/uL (0-1.0); Monocytes % (A) 6 %; Neutrophils # (A) 10.4 k/uL (1.3-7.7); Neutrophils % (A) 81 %; Platelet Count 207 k/uL (150-450); RBC 2.89 m/uL (3.80-5.40); RDW 15.8 % (11.5-15.5); WBC 12.9 k/uL (3.8-10.6)
[2022-06-02 05:54] LABS: HGB 8.4 gm/dL (11.4-16.0)
--- NOTE | 2022-06-02 08:43 | P.PNOBGPC ---
Subjective - Subjective Principal diagnosis: Postop day 1, primary Interval history: Patient is doing well postoperatively. Urine output increased through the night and Montejo was discontinued. Patient states she feels overall well. She did tolerate regular diet without nausea or vomiting this morning. Patient reports: Reports appetite normal, Reports voiding normally, Reports pain well controlled, Reports ambulating normally [place]: doing well Objective - Vital Signs Latest vital signs: Vital Signs Temp Pulse Pulse Resp BP BP Pulse Ox 06/02/22 00:00 96.8 F L 96 16 133/88 06/01/22 16:25 98.1 F 89 18 149/95 06/01/22 16:00 98.1 F 91 16 138/90 98 06/01/22 14:42 98.4 F 97 16 135/86 97 06/01/22 14:40 98.4 F 98 16 136/90 06/01/22 14:22 98.4 F 105 H 16 135/80 06/01/22 14:12 98.3 F 99 18 136/90 97 06/01/22 12:00 98 F 98 18 136/90 97 Intake and Output 06/01/22 06/02/22 06/02/22 22:59 06:59 14:59 Intake Total 310 Output Total 230 1000 Balance 80 -1000 Intake: Blood Product 310 Rc As-1 Unit 310 [id number] Output: Urine 230 1000 Uretheral (Montejo) 75 Other: Voiding Method Indwelling Catheter - Exam Extremities: Present: normal, edema Abdomen: Present: normal appearance Incision: Present: normal, dry, intact Uterus: Present: normal, firm - Labs Labs: Abnormal Lab Results - Last 24 Hours (Table) 05/31/22 06/01/22 06/02/22 Range/Units 08:00 12:25 05:01 WBC 15.4 H 12.9 H (3.8-10.6) k/uL RBC 2.34 L 2.89 L (3.80-5.40) m/uL Hgb 6.7 L* D 8.4 L D (11.4-16.0) gm/dL Hct 20.4 L 25.3 L (34.0-46.0) % RDW 16.2 H 15.8 H (11.5-15.5) % Neutrophils # 12.9 H 10.4 H (1.3-7.7) k/uL Crossmatch See Detail Assessment and Plan (1) 39 weeks gestation of Current Visit: Yes Status: Acute Code(s): Z3A.39 - 39 WEEKS GESTATION OF SNOMED Code(s): 59783663 (2) SROM (spontaneous rupture of membranes) Current Visit: Yes Status: Acute Code(s): YAI9348 - SNOMED Code(s): 227801535 (3) Arrest of descent, delivered, current hospitalization Current Visit: Yes Status: Acute Code(s): O62.1 - SECONDARY UTERINE INERTIA SNOMED Code(s): 32796624 (4) Arrest of dilation, delivered, current hospitalization Current Visit: Yes Status: Acute Code(s): O62.1 - SECONDARY UTERINE INERTIA SNOMED Code(s): 55384146 (5) malposition, delivered, current hospitalization Current Visit: Yes Status: Acute Code(s): O32.9XX0 - MATERNAL CARE FOR MALPRESENTATION OF FETUS, UNSP, UNSP SNOMED Code(s): 242773706 (6) Gestational diabetes Current Visit: Yes Status: Acute Code(s): O24.419 - GESTATIONAL DIABETES MELLITUS IN , UNSP CONTROL SNOMED Code(s): 67302750 (7) S/P section Current Visit: Yes Status: Acute Code(s): Z98.891 - HISTORY OF UTERINE SCAR FROM PREVIOUS SURGERY SNOMED Code(s): 256911110 Plan: 26-year-old G1 now P1 status post primary for arrest of descent and dilation, occiput posterior presentation. Patient is doing well postoperatively. Urinary output was much improved over the night. Patient is feeling well. Continue routine postoperative care and anticipate discharge home tomorrow.
[2022-06-03] MEDS: IBUPROFEN 600 MG TAB PO SCH ×2 (02:08→08:35)
[2022-06-03] MEDS: ACETAMINOPHEN TAB 500 MG TAB PO SCH (05:08)
[2022-06-03 07:46] VITALS: BP 130/87; PULSE 84; RESP 16; TEMP 97.9
[2022-06-03] MEDS: SENNOSIDES-DOCUSATE SODIUM 1 EACH TAB PO SCH (07:48)
--- NOTE | 2022-06-03 08:45 | P.DS ---
Providers Date of admission: 05/31/22 07:37 Expected date of discharge: 06/03/22 Attending physician: Mary Olsen Primary care physician: Stated None - Discharge Diagnosis(es) (1) 39 weeks gestation of Current Visit: Yes Status: Acute (2) SROM (spontaneous rupture of membranes) Current Visit: Yes Status: Acute (3) Arrest of descent, delivered, current hospitalization Current Visit: Yes Status: Acute (4) Arrest of dilation, delivered, current hospitalization Current Visit: Yes Status: Acute (5) malposition, delivered, current hospitalization Current Visit: Yes Status: Acute (6) Gestational diabetes Current Visit: Yes Status: Acute (7) S/P section Current Visit: Yes Status: Acute Hospital Course: This is a 26-year-old 1 para 0 that presented to labor and delivery on 05/31 with complaints of spontaneous rupture of membranes around 6 AM. Patient was noted to be adelia although made minimal cervical change therefore Pitocin augmentation of labor was begun. Patient made slow progress through labor but did become uncomfortable and requested epidural placement. Epidural was placed without difficulty by the anesthesia department. Patient progressed to proximally 6-7 cm of dilation although the head was not well applied to the cervix. Minimal change was noted over the course of several hours with noted cervical swelling and increasing . Fetus was noted to be in an occiput posterior presentation in addition. Patient elected primary secondary to arrest of descent and dilation and physical exam findings of increasing That and cervical swelling. was performed without difficulty. For full details on the please see the operative report. Patient did deliver a viable female infant, weight of 7 lbs. 6 oz. Patient has had a slightly, given postoperative course. She had acute blood loss anemia and decreasing urine output on postop day 0. 1 unit of packed red blood cells was given and urinary output was noted to improve. Patient has done well since then. She is ambulating and voiding without difficulty on this postoperative day #2. She states her pain is well-controlled. She is nursing without difficulty. She denies concerns this morning. She would like discharge home later today. Patient Condition at Discharge: Good Plan - Discharge Summary New Discharge Prescriptions: No Action metFORMIN HCL ER [Glucophage XR] 750 mg PO DAILY Vit No.179/Iron/Folic [ Tablet] 1 tab PO DAILY Discharge Medication List Vit No.179/Iron/Folic [ Tablet] 1 tab PO DAILY 05/10/22 [History] metFORMIN HCL ER [Glucophage XR] 750 mg PO DAILY 05/10/22 [History] Follow up Appointment(s)/Referral(s): Mary Olsen DO [Doctor of Osteopathic Medicine] - 2 Weeks Patient Instructions/Handouts: (DC), (GEN) Activity/Diet/Wound Care/Special Instructions: No tub baths or intercourse until 6 weeks . Rfky-rmw-rvotoea ibuprofen as needed for pain, patient is to schedule a routine 2 week post check. Should patient have any concerns prior to her visit she is urged to call the office. Discharge Disposition: HOME SELF-CARE
== END 2022-06-03 11:10 | disposition home or self-care (01) | DRG 787 ==
LOC: FBPOP 07:00 → 4FBP 07:37
PROVIDERS: ADMIT Obstetrics & Gynecology Obstetrics; ATTEND Obstetrics & Gynecology Obstetrics
PROC: 10D00Z1 Extraction of Products of Conception, Low, Open Approach (ICD-10-PCS; principal; 2022-06-01)
PROC: 30233N1 Transfusion of Nonautologous Red Blood Cells into Peripheral Vein, Percutaneous Approach (ICD-10-PCS; 2022-06-01)
PROC: 4A0HXCZ Measurement of Products of Conception, Cardiac Rate, External Approach (ICD-10-PCS; 2022-06-01)
DX: O42.92 Full-term premature rupture of membranes, unspecified as to length of time between rupture and onset of labor (principal); D62 Acute posthemorrhagic anemia; O24.425 Gestational diabetes mellitus in childbirth, controlled by oral hypoglycemic drugs; O32.4XX0 Maternal care for high head at term, not applicable or unspecified; O32.9XX0 Maternal care for malpresentation of fetus, unspecified, not applicable or unspecified; O90.81 Anemia of the puerperium; O62.0 Primary inadequate contractions; Z37.0 Single live birth; Z3A.39 39 weeks gestation of pregnancy; Z79.84 Long term (current) use of oral hypoglycemic drugs; Z88.5 Allergy status to narcotic agent
CPT/HCPCS: 59025; 82565; 83036; 83615; 84112; 84450; 84460; 84520; 84550; 85025; 86850; 86900; 86901; 86920; 99213

== ENCOUNTER → 2023-03-02 | Outpatient (CLI) | payer OTHER ==
--- NOTE | 2023-03-03 07:47 | XR ---
EXAMINATION TYPE: XR foot complete RT DATE OF EXAM: 03/02/2023 4:32 PM INDICATION: Patient age:Female; 27 years old; Reason for study: M79.671; [facility]. COMPARISON: None TECHNIQUE: The right foot was examined in the AP, oblique, and lateral projections. FINDINGS: No evidence of any acute osseous pathology. Soft tissue swelling of the dorsal aspect of the forefoo t. Joints are preserved. No radiopaque foreign body. IMPRESSION: 1. No evidence of acute fracture. 2. Soft tissue swelling of the dorsal forefoot.
== END | disposition home or self-care (01) ==
LOC: RADXRMAIN 16:19
PROVIDERS: ATTEND Family Medicine
DX: M79.671 Pain in right foot (principal); M79.89 Other specified soft tissue disorders

== ENCOUNTER 2023-06-27 10:15 | Inpatient (IN) | payer OTHER ==
[2023-06-24 09:47] VITALS: BMI 29.7
[2023-06-27 10:38] LABS: Glucose,Whole Blood 102 mg/dL (70-110)
[2023-06-27] MEDS ORDERED: CARBOPROST TROMETHAMINE 250 MCG/ML 1 ML AMP IM PRN (10:44)
[2023-06-27] MEDS ORDERED: TRANEXAMIC 1,000 MG/100ML-NACL 1,000 MG in EMPTY BAG 1 BAG IV PRN (10:44)
[2023-06-27] MEDS ORDERED: METHYLERGONOVINE 0.2 MG/ML 1 ML AMP IM PRN (10:44)
[2023-06-27] MEDS ORDERED: LACTATED RINGERS 1,000 ML IV ONE (10:44)
[2023-06-27] MEDS ORDERED: OXYTOCIN 10 UNIT/ML 1 ML VIAL IM PRN (10:44)
[2023-06-27] MEDS ORDERED: miSOPROStoL 200 MCG TAB PO PRN (10:44)
[2023-06-27 11:00] LABS: Basophils % (A) 0 %; Eosinophils # (A) 0.2 k/uL (0-0.7); Eosinophils % (A) 3 %; HCT 34.9 % (34.0-46.0); HGB 11.5 gm/dL (11.4-16.0); Lymphocytes # (A) 1.3 k/uL (1.0-4.8); Lymphocytes % (A) 18 %; MCH 28.2 pg (25.0-35.0); MCHC 32.9 g/dL (31.0-37.0); MCV 85.5 fL (80.0-100.0); Mean Platelet Volume 7.9; Monocytes # (A) 0.6 k/uL (0-1.0); Monocytes % (A) 8 %; Neutrophils # (A) 4.8 k/uL (1.3-7.7); Neutrophils % (A) 67 %; Platelet Count 306 k/uL (150-450); RBC 4.08 m/uL (3.80-5.40); WBC 7.1 k/uL (3.8-10.6)
[2023-06-27] MEDS ORDERED: CITRIC ACID-SODIUM CITRATE 15 ML CUP PO ONE (11:00)
--- NOTE | 2023-06-27 12:03 | P.HPOB ---
History of Present Illness H&P Date: 06/27/23 Chief Complaint: IUP at 39-0/7 weeks, history of 1 27-year-old at 39 0/7 weeks, estimated due date of 07/04 that presents to labor and delivery for scheduled repeat section. Patient has been receiving routine care with myself which has been complicated by a marginal cord insertion for which growth ultrasounds have been done, and testing has been negative. In addition a diagnosis of gestational diabetes for which is been controlled with diet alone. Patient has a prior history of a primary and elects repeat section with tubal ligation as she is done with childbearing. Patient notes good movement denies vaginal bleeding loss of fluid or contractions. On bloodwork this patient is a blood type of A+, rubella status immune, hep B surface antigen negative, HIV negative, RPR is nonreactive, group beta strep culture negative. Review of Systems Constitutional: Denies chills, Denies fatigue, Denies fever Ears, nose, mouth and throat: Denies headache Cardiovascular: Reports leg edema Respiratory: Denies dyspnea Gastrointestinal: Denies constipation, Denies diarrhea, Denies nausea, Denies vomiting Genitourinary: Reports Past Medical History Past Medical History: No Reported History, Diabetes Mellitus Additional Past Medical History / Comment(s): Gestational Diabetes, Polcystic Ovarian Syndrome. History of Any Multi-Drug Resistant Organisms: None Reported Past Surgical History: No Surgical Hx Reported, Section Additional Past Surgical History / Comment(s): Maxilofacial surgery. Past Anesthesia/Blood Transfusion Reactions: No Reported Reaction Past Psychological History: No Psychological Hx Reported Smoking Status: Never smoker Past Alcohol Use History: None Reported Past Drug Use History: None Reported - Past Family History Mother Family Medical History: No Reported History Medications and Allergies Home Medications Medication Instructions Recorded Confirmed Type Vit No.179/Iron/Folic 1 tab PO DAILY 05/10/22 06/24/23 History [ Tablet] metFORMIN HCL ER [Glucophage XR] 750 mg PO DAILY 05/10/22 06/24/23 History Allergies Allergy/AdvReac Type Severity Reaction Status Date / Time codeine AdvReac Vomiting Verified 06/24/23 09:28 Exam Osteopathic Statement: *. No significant issues noted on an osteopathic structural exam other than those noted in the History and Physical/Consult. Vital Signs Temp Pulse Resp BP Pulse Ox 06/27/23 10:44 97.5 F L 87 18 130/82 98 Intake and Output 06/26/23 06/27/23 06/27/23 22:59 06:59 14:59 Other: Weight 68.946 kg Targeted physical exam is performed in this date and anesthesiology resident a well-nourished well-developed female in no acute distress, breathing is noted to be nonlabored, heart has a regular rate and rhythm, abdomen is gravid and appropriate for gestational age, cervical exam is deferred, heart tones are noted to be category 1 and she is not adelia. Results Result Diagrams: 06/27/23 10:30 Abnormal Lab Results - Last 24 Hours (Table) 06/27/23 Range/Units 10:30 RDW 16.0 H (11.5-15.5) % Assessment and Plan (1) H/O section Current Visit: Yes Status: Acute Code(s): Z98.891 - HISTORY OF UTERINE SCAR FROM PREVIOUS SURGERY SNOMED Code(s): 921044238 (2) 39 weeks gestation of Current Visit: No Status: Acute Code(s): Z3A.39 - 39 WEEKS GESTATION OF SNOMED Code(s): 19886792 (3) Gestational diabetes Current Visit: No Status: Acute Code(s): O24.419 - GESTATIONAL DIABETES MELLITUS IN , UNSP CONTROL SNOMED Code(s): 70230566 Plan: 19-year-old at 39-0/7 weeks presents for scheduled repeat section with tubal ligation. Patient states she is done with childbearing. Patient is counseled on salpingectomy and removal of fallopian tubes. Patient states understanding and understands that future if desired to be achieved with in vitro fertilization. Patient states understanding. Patient is taken back to the operating suite for scheduled repeat section with tubal ligation.
[2023-06-27] MEDS ORDERED: OXYTOCIN 30 UNITS/500 ML NS BAG IV ONE (12:10)
[2023-06-27] MEDS ORDERED: MORPHINE SULFATE (PF) 0.3 MG/0.3 ML SYR ONE (12:10)
[2023-06-27] MEDS ORDERED: ONDANSETRON 4 MG/2 ML VIAL ONE (12:10)
[2023-06-27] MEDS ORDERED: NALBUPHINE 10 MG/ML (10 ML MDV) IV PRN (13:01)
[2023-06-27] MEDS ORDERED: NALOXONE 0.4 MG/ML 1 ML VIAL IV PRN ×2 (13:01→13:29)
[2023-06-27] MEDS ORDERED: HYDROmorphone 0.5 MG/0.5 ML SYRINGE IVP PRN (13:01)
[2023-06-27] MEDS ORDERED: ONDANSETRON 4 MG/2 ML VIAL IVP PRN ×2 (13:01→13:29)
[2023-06-27] MEDS ORDERED: diphenhydrAMINE 50 MG/ML 1 ML VIAL IVP PRN ×2 (13:01→13:29)
--- NOTE | 2023-06-27 13:03 | P.OP ---
Date of Procedure: 06/27/23 Preoperative Diagnosis: IUP at 39 0/7 weeks, history of 1, desires repeat Postoperative Diagnosis: Same Procedure(s) Performed: Repeat section, tubal ligation Anesthesia: spinal Surgeon: Mary Olsen Viscose Cellar Charge Hand #1: Joi Adler Estimated Blood Loss (ml): 350 IV fluids (ml): 1,000 Urine output (ml): 100 (There yellow) Pathology: other (Placenta) Condition: stable Disposition: observation Indications for Procedure: 19-year-old at 39 weeks of that presents for scheduled repeat section with tubal ligation. Operative Findings: Thin lower uterine segment appreciated, "paperthin upon entry" viable male infant delivered at 1229, weight of 8 lbs. 3 oz., Apgars of 9 and 9 at one and 5 minutes respectively. Normal fallopian tubes bilateral salpingectomy performed secondary to patient request for sterilization Description of Procedure: Patient was taken back to the operating suite where spinal anesthesia was found be adequate by the anesthesia department. She was prepped and draped in normal sterile fashion in the dorsal supine position. A Pfannenstiel skin incision was made with the scalpel and the prior Pfannenstiel skin incision was noted to be thickened/keloid in nature. This was excised. Incision extended down to the fascial tissue. The fascia was incised the midline and extended laterally. The superior aspect of the fascial incision was then grasped with Romario clamps, elevated and underlying rectus muscles dissected off sharply. The inferior aspect the fascial incision was then grasped romario clamps, elevated and underlying rectus muscle was dissected off sharply. The rectus muscles were and the peritoneum was identified and entered. This incision was then extended superiorly and inferiorly with good visualization the bladder. The bladder blade was then inserted. The vesicouterine peritoneum was identified and the bladder flap was created using blunt dissection. Hysterotomy incision was made the scalpel clear fluid was obtained the was noted to be in a vertex presentation and delivered in the usual fashion. The vocal cord was doubly clamped and cut and the was handed off to awaiting RN. The placenta was delivered manually and the uterus was cleared of all clots and debris. The uterine incision was closed 0 Vicryl in a running locked fashion. Hemostasis was noted. Attention then turned the patient's right fallopian tube which was elevated and the LigaSure device was used to coagulate the mesosalpinx up to the cornu. Hemostasis was appreciated and the cord segment was passed off of the operating field. This was then repeated on the left fallopian tube. Hemostasis was appreciated once again. The pelvis was then irrigated and any clots and debris were removed. The uterus was then returned to the abdomen tubal sites were noted to be hemostatic the hysterotomy incision was inspected and small area of bleeding was noted therefore a [id number]-ya-[id number] suture was used to obtain hemostasis. The gutters were cleared of all clots and debris hysterotomy incision was inspected once again and found to be hemostatic. The peritoneum was then loosely reapproximated. The fascia was then closed with 0 Vicryl in a running fashion from one lateral edge the midline and the other lateral edge the midline. Subcutaneous tissue was irrigated and any points of bleeding were made hemostatic with the Bovie. The subcu tissues closed with 3-0 Vicryl in a running fashion. The skin was closed with 4-0 Vicryl in a subcuticular fashion. Steri-Strips and sterile dressings were applied. All counts were noted be correct 2 at the end of the procedure. Patient and tolerated delivery well and are resting comfortably.
[2023-06-27] MEDS ORDERED: diphenhydrAMINE 25 MG CAP PO PRN (13:29)
[2023-06-27] MEDS ORDERED: METOCLOPRAMIDE 5 MG/ML 2 ML VIAL IVP PRN (13:29)
[2023-06-27] MEDS ORDERED: OXYTOCIN 30 UNITS/500 ML NS 30 UNIT in SALINE 1 500ML.BAG IV SCH (13:29)
[2023-06-27] MEDS ORDERED: SIMETHICONE 80 MG CHEWABLE PO PRN (13:29)
[2023-06-27] MEDS ORDERED: diphenhydrAMINE 50 MG CAP PO PRN (13:29)
[2023-06-27] MEDS ORDERED: ZOLPIDEM 5 MG TAB PO PRN (13:29)
[2023-06-27] MEDS: diphenhydrAMINE 50 MG/ML 1 ML VIAL IVP PRN ×2 (14:23→21:50)
[2023-06-27] MEDS: ACETAMINOPHEN IV (For NPO) 1,000 MG in EMPTY BAG 1 BAG IVPB SCH ×2 (15:17→20:57)
[2023-06-27] MEDS: ACETAMINOPHEN TAB 500 MG TAB PO SCH (15:21)
[2023-06-27] MEDS: IBUPROFEN 600 MG TAB PO SCH (18:03)
[2023-06-27] MEDS: LACTATED RINGERS 1,000 ML IV SCH (18:25)
[2023-06-27] MEDS: IBUPROFEN IV 800 MG in SODIUM CHLORIDE 0.9% 250 ML IV SCH (18:25)
[2023-06-27] MEDS: SENNOSIDES-DOCUSATE SODIUM 1 EACH TAB PO SCH (20:56)
[2023-06-28] MEDS ORDERED: IBUPROFEN IV 800 MG in SODIUM CHLORIDE 0.9% 250 ML IV SCH ×2
[2023-06-28] MEDS: KETOROLAC 15 MG/ML 1 ML VIAL IVP PRN ×2 (00:23→08:11)
[2023-06-28] MEDS: LACTATED RINGERS 1,000 ML IV SCH ×3 (00:24→14:00)
[2023-06-28] MEDS: ACETAMINOPHEN TAB 500 MG TAB PO SCH ×5 (04:50→23:32)
[2023-06-28] MEDS: diphenhydrAMINE 50 MG/ML 1 ML VIAL IVP PRN (05:00)
[2023-06-28] MEDS: IBUPROFEN 600 MG TAB PO SCH ×4 (05:16→19:58)
[2023-06-28] MEDS: IBUPROFEN IV 800 MG in SODIUM CHLORIDE 0.9% 250 ML IV SCH ×3 (05:18→14:00)
[2023-06-28 06:50] VITALS: RESP 16
[2023-06-28 07:50] LABS: Anisocytosis Slight; Basophils % (A) 0 %; Eosinophils # (A) 0.1 k/uL (0-0.7); Eosinophils % (A) 2 %; HCT 25.5 % (34.0-46.0); Lymphocytes # (A) 1.5 k/uL (1.0-4.8); Lymphocytes % (A) 21 %; MCH 27.9 pg (25.0-35.0); MCHC 32.6 g/dL (31.0-37.0); MCV 85.7 fL (80.0-100.0); Mean Platelet Volume 7.9; Monocytes # (A) 0.5 k/uL (0-1.0); Monocytes % (A) 6 %; Neutrophils # (A) 5.1 k/uL (1.3-7.7); Neutrophils % (A) 70 %; Platelet Count 245 k/uL (150-450); RBC 2.97 m/uL (3.80-5.40); RDW 16.2 % (11.5-15.5); WBC 7.4 k/uL (3.8-10.6)
[2023-06-28 07:53] LABS: HGB 8.3 gm/dL (11.4-16.0)
[2023-06-28] MEDS: SENNOSIDES-DOCUSATE SODIUM 1 EACH TAB PO SCH ×2 (08:11→19:58)
--- NOTE | 2023-06-28 09:33 | P.PNOBGPC ---
Subjective - Subjective Principal diagnosis: POD 1 RCS Interval history: Patient is feeling well this morning. She did struggle with nausea and vomiting status post repeat . Patient's Montejo catheter was removed this a.m. and we are awaiting spontaneous void. States her pain is well-controlled. She notes her lochia to be minimal. She denies concerns this morning. Patient reports: Reports appetite normal, Reports pain well controlled, Reports ambulating normally [place]: doing well Objective - Vital Signs Latest vital signs: Vital Signs Temp Pulse Resp BP BP Pulse Ox 06/28/23 06:00 16 06/28/23 00:00 98.2 F 79 17 121/78 96 06/27/23 20:00 98.0 F 68 14 118/73 96 06/27/23 18:00 18 06/27/23 16:01 18 06/27/23 15:01 98.2 F 63 18 117/85 95 06/27/23 14:31 73 18 122/60 100 06/27/23 14:01 86 18 131/63 100 06/27/23 13:46 96.7 F L 61 18 114/64 96 06/27/23 13:31 59 L 18 126/63 100 06/27/23 13:16 69 18 128/69 97 06/27/23 13:01 96.7 F L 62 18 110/67 98 06/27/23 10:44 97.5 F L 87 18 130/82 98 Intake and Output 06/27/23 06/28/23 06/28/23 22:59 06:59 14:59 Intake Total 600 Output Total 291 150 Balance 309 -150 Intake: Oral 600 Output: Urine 150 Output, Quantitative 291 Blood Loss Other: Voiding Method Indwelling Catheter Indwelling Catheter # Voids 200 - Exam Extremities: Present: normal, edema Abdomen: Present: normal appearance Incision: Present: normal, dry, intact Uterus: Present: normal, firm - Labs Labs: Abnormal Lab Results - Last 24 Hours (Table) 06/27/23 06/28/23 Range/Units 10:30 06:53 RBC 2.97 L (3.80-5.40) m/uL Hgb 8.3 L D (11.4-16.0) gm/dL Hct 25.5 L (34.0-46.0) % RDW 16.0 H 16.2 H (11.5-15.5) % Assessment and Plan (1) H/O section Current Visit: Yes Status: Acute Code(s): Z98.891 - HISTORY OF UTERINE SCAR FROM PREVIOUS SURGERY SNOMED Code(s): 087967954 (2) 39 weeks gestation of Current Visit: No Status: Acute Code(s): Z3A.39 - 39 WEEKS GESTATION OF SNOMED Code(s): 25096846 (3) Gestational diabetes Current Visit: No Status: Acute Code(s): O24.419 - GESTATIONAL DIABETES MELLITUS IN , UNSP CONTROL SNOMED Code(s): 50682569 (4) S/P section Current Visit: No Status: Acute Code(s): Z98.891 - HISTORY OF UTERINE SCAR FROM PREVIOUS SURGERY SNOMED Code(s): 171478791 Plan: 27-year-old G2 now P2 status post repeat section with bilateral salpingectomy. Patient is doing well postoperatively. Awaiting spontaneous void. We'll encourage increased ambulation. Anticipate discharge home tomorrow.
[2023-06-28] MEDS: PRENATAL VIT-IRON-FOLIC ACID 1 EACH TABLET PO SCH (10:38)
--- NOTE | 2023-06-28 10:43 | P.PN ---
Progress Note - Text 06/28/23 633am 27-year-old female status post , patient receives Duramorph for her spinal. Patient seen and evaluated for postop pain control she has a VAS of 1 with no complains of nausea vomiting she does have pruritus which is getting better
[2023-06-29] MEDS: IBUPROFEN 600 MG TAB PO SCH ×2 (02:38→08:44)
[2023-06-29] MEDS: ACETAMINOPHEN TAB 500 MG TAB PO SCH ×2 (05:39→12:58)
[2023-06-29] MEDS: PRENATAL VIT-IRON-FOLIC ACID 1 EACH TABLET PO SCH (08:42)
[2023-06-29] MEDS: SENNOSIDES-DOCUSATE SODIUM 1 EACH TAB PO SCH (08:44)
--- NOTE | 2023-06-29 08:47 | P.DS ---
Providers Date of admission: 06/27/23 10:16 Expected date of discharge: 06/29/23 Attending physician: Mary Olsen Primary care physician: Stated None - Discharge Diagnosis(es) (1) H/O section Current Visit: Yes Status: Acute (2) 39 weeks gestation of Current Visit: No Status: Acute (3) Gestational diabetes Current Visit: No Status: Acute (4) S/P section Current Visit: No Status: Acute (5) Acute blood loss anemia Current Visit: Yes Status: Acute Hospital Course: 19-year-old G2 now P2 status post repeat section with bilateral salpingectomy. Patient been receiving routine care with myself which has been completed by diagnosis of gestational diabetes for which she was on metformin orally. Blood sugars have been well controlled throughout the .. Patient is feeling well on this postoperative day #2 she is ambulating and voiding without difficulty. She is tolerating a regular diet without nausea or vomiting. She is her pain is well-controlled. Hemoglobin was reviewed and notes acute blood loss anemia with a hemoglobin of status post C- section. Encouraged iron postoperatively. We'll plan discharge home today. With routine postoperative appointment in 2 weeks. Patient Condition at Discharge: Good Plan - Discharge Summary Discharge Rx Participant: Yes New Discharge Prescriptions: No Action metFORMIN HCL ER [Glucophage XR] 750 mg PO DAILY Vit No.179/Iron/Folic [ Tablet] 1 tab PO DAILY Discharge Medication List Vit No.179/Iron/Folic [ Tablet] 1 tab PO DAILY 05/10/22 [History] metFORMIN HCL ER [Glucophage XR] 750 mg PO DAILY 05/10/22 [History] Follow up Appointment(s)/Referral(s): Mary Olsen DO [Doctor of Osteopathic Medicine] - 1 Week Patient Instructions/Handouts: (DC), (GEN) Activity/Diet/Wound Care/Special Instructions: No tub baths or intercourse until 6 weeks postoperatively. Encouraged continued daily vitamin along with iron supplement once daily. Patient is to call the office and make a routine appointment for a postoperative check in 2 weeks. Should she have any concerns prior to this appointment she is urged to call the office. Discharge Disposition: HOME SELF-CARE
[2023-06-29 09:21] VITALS: BP 109/71; PULSE 83; TEMP 97.4
== END 2023-06-29 14:00 | disposition home or self-care (01) | DRG 539 ==
LOC: 4FBP 10:16
PROVIDERS: ADMIT Obstetrics & Gynecology Obstetrics; ATTEND Obstetrics & Gynecology Obstetrics
PROC: 0UB70ZZ Excision of Bilateral Fallopian Tubes, Open Approach (ICD-10-PCS; 2023-06-27)
PROC: 10D00Z1 Extraction of Products of Conception, Low, Open Approach (ICD-10-PCS; principal; 2023-06-27 12:00)
DX: O34.211 Maternal care for low transverse scar from previous cesarean delivery (principal); D62 Acute posthemorrhagic anemia; O24.425 Gestational diabetes mellitus in childbirth, controlled by oral hypoglycemic drugs; O90.81 Anemia of the puerperium; Z30.2 Encounter for sterilization; O99.73 Diseases of the skin and subcutaneous tissue complicating the puerperium; L29.9 Pruritus, unspecified; R11.2 Nausea with vomiting, unspecified; Z37.0 Single live birth; O90.89 Other complications of the puerperium, not elsewhere classified; Z3A.39 39 weeks gestation of pregnancy
CPT/HCPCS: 85025; 86850; 86900; 86901

== ENCOUNTER 2024-05-30 06:34 | Day surgery (SDC) | payer BC, OTHER ==
[2024-05-25 15:47] VITALS: BMI 27.9
[2024-05-30] MEDS ORDERED: fentaNYL (PF) 50 MCG/ML 2 ML AMP IV PRN (07:00)
[2024-05-30] MEDS: OXYMETAZOLINE 0.05% NASL SPRAY 1 SPRAY BOTTLE EA NOSTRIL PRN (07:01)
[2024-05-30] MEDS: FAMOTIDINE 20 MG/2 ML VIAL IV PRN (07:20)
[2024-05-30] MEDS: ONDANSETRON 4 MG/2 ML VIAL IVP ONE (07:20)
[2024-05-30] MEDS: DEXAMETHASONE SOD PHOSPHATE 4 MG/ML 1 ML VIAL IV ONE (07:20)
[2024-05-30] MEDS: LACTATED RINGERS 1,000 ML IV SCH (07:30)
[2024-05-30] MEDS: IV FLUID CONTINUATION 1,000 ML IV ONE (07:30)
[2024-05-30] MEDS ORDERED: MIDAZOLAM 2 MG/2 ML VIAL ONE (07:37)
[2024-05-30] MEDS ORDERED: SUCCINYLCHOLINE CHLORIDE 200 MG/10 ML VIAL IV ONE (07:37)
[2024-05-30] MEDS ORDERED: LIDOCAINE 1% INJ 10MG/ML (20 ML MDV) ONE (07:37)
[2024-05-30] MEDS ORDERED: fentaNYL (PF) 50 MCG/ML 2 ML AMP ONE (07:37)
[2024-05-30] MEDS ORDERED: PROPOFOL 10 MG/ML 20 ML VIAL IV ONE (07:37)
[2024-05-30] MEDS: LIDOCAINE 1%-EPI 1:100,000 20 ML VIAL SUBMUCOSAL ONE ×2 (07:50)
[2024-05-30] MEDS: BACITRACIN ZINC 500 UNIT/GM OINT 28.4 GM TUBE TOPICAL ONE ×2 (07:53→08:12)
--- NOTE | 2024-05-30 08:28 | P.OP ---
Date of Procedure: 05/30/24 Preoperative Diagnosis: the nasal septum Inferior turbinate hypertrophy Postoperative Diagnosis: same Procedure(s) Performed: septoplasty Outfracture and submucous resection of the inferior turbinates Anesthesia: OLMANA Surgeon: Herminio Boykin Estimated Blood Loss (ml): 5 Pathology: other (septal bone and cartilage) Condition: stable Disposition: PACU Indications for Procedure: this is a 28-year-old white female who has difficulties with chronic nasal airway obstruction bilaterally right greater than left Operative Findings: nasal septum deviated to the right anteriorly and to the left posteriorly with inferior turbinate hypertrophy bilateral-also noted considerable intranasal scarringbilaterally with synechia from the septum to the inferior turbinates bilateral but right greater than left presumably from previous maxillofacial surgery Description of Procedure: DESCRIPTION OF PROCEDURE: The patient was brought to the operative suite, placed in the supine position. The patient underwent induction of general anesthesia with oral endotracheal intubation without difficulty. The patient was prepped and draped in the usual aseptic fashion. 1% lidocaine with 1:100,000 epinephrine was infused submucosally on both sides of the nasal septum. While this was taking vasoconstrictive effect, the inferior turbinates were infractured with a [place] elevator. Partial submucous resection of the inferior turbinates was performed with Coblation device ablating a portion of the submucosal soft tissue. The inferior turbinates were then outfractured with a [place] elevator.there were adhesions intranasally that were lysed sharply bilaterally between the inferior turbinates and septum also. A left hemitransfixion incision was then made through the mucoperichondrial. Mucoperiosteal flap on the left elevated. Bony cartilaginous junction was disarticulated and mucoperiosteal flap on the right was elevated. Bony nasoseptal deformity were removed with Arianna forceps and an inferior cartilaginous strip was removed, leaving a full 1.5 cm caudal strut. Checking intranasally, this corrected the nasal septal deformities and the hemitransfixion incision was closed with running 4-0 chromic suture. The bilateral Hameed airway splints coated in bacitracin ointment were placed in the nasal cavities and sutured transseptally with 4-0 nylon suture. The patient was then suctioned in an orogastric fashion. The patient was allowed to emerge from general anesthesia, having tolerated the procedure well and was extubated in the operating suite, transferred to postoperative recovery area in satisfactory condition.
[2024-05-30 08:50] VITALS: TEMP 96.8
[2024-05-30] MEDS: HYDROmorphone 0.5 MG/0.5 ML SYRINGE IVP SCH (08:55)
[2024-05-30] MEDS: METOCLOPRAMIDE 5 MG/ML 2 ML VIAL IVP STA (10:18)
[2024-05-30 10:48] VITALS: BP 114/63; PULSE 98; RESP 16
== END 2024-05-30 10:54 | disposition home or self-care (01) ==
LOC: OR 06:34
PROVIDERS: ATTEND Otolaryngology
DX: J34.2 Deviated nasal septum (principal); J34.3 Hypertrophy of nasal turbinates; J30.89 Other allergic rhinitis; E66.3 Overweight; Z68.25 Body mass index [BMI] 25.0-25.9, adult; Z91.09 Other allergy status, other than to drugs and biological substances; Z88.5 Allergy status to narcotic agent
CPT/HCPCS: 81025; 84703; 30520; 30140; J2250; J0330; J1100; J2765; J0690; J2405; J2003; J3010; J3490; J2704; J1171

== ENCOUNTER → 2024-10-31 | Outpatient (CLI) | payer OTHER ==
--- NOTE | 2024-10-31 12:13 | US ---
EXAMINATION TYPE: US thyroid st tissue head/neck DATE OF EXAM: 10/31/2024 COMPARISON: 06/29/2021 CLINICAL INDICATION: Female, 28 years old with history of E04.9 NONTOXIC GOITER, UNSPECIFIED; Follow up nodule. Not on thyroid meds. TECHNIQUE: Grayscale and color Doppler imaging of the thyroid gland. FINDINGS: GLAND SIZE: Right Lobe: 4.3 x 1.4 x 1.9 cm Overall Parenchyma: homogeneous Left Lobe: 4.3 x 1.3 x 1.3 cm Overall Parenchyma: homogeneous Isthmus Thickness: 0.3 cm NODULES RIGHT: # of nodules measured on right: 1 1. 1.1 X 1.0 x 0.6 cm, mid mid, solid or almost completely solid, isoechoic TR 3 nodule, which is w ider than tall, with smooth margins, without echogenic foci. Prior size: 0.8 x 0.8 x 0.5 cm LEFT: # of nodules measured on left: 0 ISTHMUS: # of nodules measured in the isthmus: 0 Bilateral neck scanned, no evidence of lymphadenopathy. IMPRESSION: A solitary 1.1 cm TR3 nodule on the right minimally larger from 8 mm previously. TR3: If nodule size is ? 2.5 cm, FNA is recommended. If nodule size is ? 1.5 cm, follow-up imaging at 1, 3, and 5 years is recommended. [facility], , 10/31/2024 12:10 PM
== END | disposition home or self-care (01) ==
LOC: RADUSWWP 11:01
PROVIDERS: ATTEND Family Medicine
DX: E04.1 Nontoxic single thyroid nodule (principal)
CPT/HCPCS: 76536